=== PATIENT | female | born 1950 | race Two or more races ===

== ENCOUNTER 2017-01-27 04:27 | Inpatient (IN) | payer BC ==
[~2017-01-27] VITALS: Ht 160 cm; Wt 90.7 kg
[2017-01-27] VITALS (7 sets, daily range): BP systolic 119–148; BP diastolic 59–71
--- NOTE | 2017-01-27 04:50 | Emergency Room Report ---
History of Present Illness General Chief Complaint: Altered Level of Consciousness Source: Patient, Family Member Present Illness HPI Is a 66-year-old female with history of thyroid problem. She is been in the hospital visiting her daughter who was omitted for surgery. She stood up and became lightheaded and diaphoretic. She sat down and had a syncopal episode. This lasted for a few seconds. Per his felt weak and tired. No chest pain. No nausea no vomiting. No chest pain. No headache. A family friend who is a nurse came down from the floor. She said that patient had 2 syncopal or so so in the last week. Is a happen to her before. This occur when she was at the [facility] also. She went to the ER there he was discharged. Patient never had any followup with a neurologist or bowling ball patcher. Patient is not on any antihypertensive for her diabetic medication. Allergies: Coded Allergies: No Known Allergies (Unverified , 01/27/17) Patient History Past Medical History: see triage record, old chart reviewed Past Surgical History: other Pertinent Family History: none Social History: Denies: smoking Last Menstrual Period: n/a Now: No Immunizations: other Reviewed Nursing Documentation: PMH: Agreed, PSxH: Agreed Nursing Documentation-PMH Past Medical History: No History, Except For Review of Systems Eye: Denies: blurred vision, eye pain ENT: Denies: ear pain, nose congestion, throat swelling Respiratory: Denies: cough, shortness of breath Cardiovascular: Denies: chest pain, palpitations Gastrointestinal: Denies: abdominal pain, diarrhea, nausea, vomiting Musculoskeletal: Denies: back pain, joint pain Skin: Denies: rash Neurological: Denies: headache, numbness Endocrine: Denies: increased thirst, increased urine Hematologic/Lymphatic: Denies: easy bruising All Other Systems: negative except mentioned in HPI Physical Exam Vital Signs Date Time Temp Pulse Resp B/P Pulse Ox O2 Delivery O2 Flow Rate FiO2 01/27/17 04:29 97.7 63 23 82/48 94 Room Air vitals with hypotension Sp02 EP Interpretation: reviewed, normal General Appearance: well appearing, no apparent distress, alert Head: normocephalic, atraumatic Eyes: bilateral eye EOMI, bilateral eye PERRL ENT: hearing grossly normal, normal pharynx Neck: full range of motion, supple, no meningismus Respiratory: chest non-tender, lungs clear, normal breath sounds Cardiovascular #1: regular rate, rhythm, no murmur Gastrointestinal: normal bowel sounds, non tender, no mass, no organomegaly, no bruit, non-distended Musculoskeletal: back normal, gait/station normal, normal range of motion Psychiatric: mood/affect normal Skin: warm/dry Medical Decision Making Diagnostic Impression: Primary Impression: Syncope and collapse ER Course Patient presents with syncope. Probably vasovagal. Blood pressure was low when she got here. Back to normal now. patient felt better. No evidence of ACS , PE, dissection. Labs unremarkable. according to her family friend, is not the first time this happened to her. In fact, this has been several times. Because of this, she warrant admission. This may be a sick sinus syndrome. This may be a heart block. This may be other arrhythmia. I doubt this is TIA or CVA. Lab Results Impression labs unremarkable EKG Diagnostic Results Rate: normal Rhythm: NSR ST Segments: no acute changes Rhythm Strip Diag. Results EP Interpretation: yes Rate: 62 Rhythm: NSR, no PVC's, no ectopy Chest X-Ray Diagnostic Results EP Interpretation: Yes Findings: no consolidation, no effusion, no pneumothorax, no acute cardiopulmonary disease Number of Views: 1 Last Vital Signs Date Time Temp Pulse Resp B/P Pulse Ox O2 Delivery O2 Flow Rate FiO2 01/27/17 04:40 97.7 89 23 133/68 94 Room Air Status: improved Disposition: ADMITTED INPATIENT Condition: Serious LANI ROBBINS M.D. January 27, 2017 04:50
[2017-01-27 05:09] LABS: APPEARANCE,URINE CLEAR; KETONES,URINE NEGATIVE (NEGATIVE); LEUKOCYTE ESTERASE ,URINE 3+ (NEGATIVE); NITRITE,URINE NEGATIVE (NEGATIVE); PH,URINE 5 (4.5-8.0); PROTEIN,URINE NEGATIVE (NEGATIVE); UROBILINOGEN,URINE NORMAL MG/DL (0.0-1.0)
[2017-01-27 05:11] LABS: MEAN CORPUSCULAR HEMOGLOBIN 32.2 PG (27.0-31.0); MEAN CORPUSCULAR VOLUME 92 FL (80-99); PLATELET COUNT 265 K/UL (150-450); RED BLOOD COUNT 4.38 M/UL (4.20-5.40); RED CELL DISTRIBUTION WIDTH 10.8 % (11.6-14.8); WHITE BLOOD COUNT 12.5 K/UL (4.8-10.8)
[2017-01-27 05:27] LABS: ALANINE AMINOTRANSFERASE 18 U/L (3-33); ALBUMIN/GLOBULIN RATIO 1.3 (1.0-2.7); ANION GAP 15 (5-15); ASPARTATE AMINO TRANSFERASE 18 U/L (5-40); CALCIUM 10.4 mg/dL (8.6-10.2); CARBON DIOXIDE 26 mEQ/L (20-30); CHLORIDE 100 mEQ/L (98-107); CREATININE 0.8 mg/dL (0.5-0.9); GLOMERULAR FILTRATION RATE > 60 mL/min (>60); HEMOLYSIS 18; POTASSIUM 4.1 mEQ/L (3.4-4.9); SODIUM 141 mEQ/L (135-145); TOTAL PROTEIN 7.3 g/dL (6.6-8.7); TROPONIN I < 0.30 ng/mL (<=0.30)
[2017-01-27] MEDS ORDERED: ALEVE220 M2 PO (05:32)
[2017-01-27] MEDS ORDERED: VITAMIN D1000 UNI1 ORAL (05:32)
[2017-01-27 05:36] LABS: BACTERIA,URINE OCCASIONAL /HPF; RBC,URINE 0-2 /HPF (0 - 2); SQUAMOUS EPITHELIAL CELL,UR OCCASIONAL /LPF (NONE/OCC)
[2017-01-27 05:37] LABS: CKMB 1.7 ng/mL (< 3.8)
[2017-01-27 05:48] LABS: ANISOCYTOSIS 1+; BAND NEUTROPHILS % (MANUAL) 0 % (0-8); BASOPHILS % (MANUAL) 0 % (0-2); EOSINOPHILS % (MANUAL) 2 % (0-3); LYMPHOCYTES % (MANUAL) 64 % (20-45); NEUTROPHILS % (MANUAL) 30 % (45-75); PLATELET ESTIMATE ADEQUATE; PLATELET MORPHOLOGY NORMAL; TOTAL CELLS COUNTED 100
[2017-01-27 09:08] LABS: REACTIVE LYMPHOCYTES 1+
--- NOTE | 2017-01-27 10:36 | Diagnostic Imaging Report ---
Indication: Chest pain Technique: One view of the chest Comparison: none Findings: The lungs and pleural spaces are clear. The heart size is borderline enlarged. Impression: Cardiomegaly. No acute process
[2017-01-27 11:25] LABS: OTHERS PATHOLOGIST COMMENT
--- NOTE | 2017-01-27 13:38 | Infectious Diseases Prog Note ---
Assessment/Plan Problems: (1) UTI (urinary tract infection) Assessment & Plan: will send urine culture and start levaquin empirically (2) Syncope and collapse Assessment & Plan: recommend cardiology and neurology consult for further evaluation Subjective Allergies: Coded Allergies: No Known Allergies (Unverified , 01/27/17) Objective Vital Signs Last 24 Hour Vital Signs Date Time Temp Pulse Resp B/P Pulse Ox O2 Delivery O2 Flow Rate FiO2 01/27/17 12:00 90 01/27/17 11:29 97.0 63 18 143/71 100 Room Air 01/27/17 08:09 97.7 64 18 119/59 100 Room Air 01/27/17 08:00 73 01/27/17 06:49 74 148/70 99 Room Air 01/27/17 06:30 97.7 63 23 123/62 98 Room Air 01/27/17 06:20 97.7 63 23 123/62 98 Room Air 01/27/17 04:40 97.7 89 23 133/68 94 Room Air 01/27/17 04:29 97.7 63 23 82/48 94 Room Air Height (Feet): 5 Height (Inches): 3.00 Weight (Pounds): 200 Laboratory Tests Test 01/27/17 04:35 01/27/17 04:53 White Blood Count 12.5 K/UL (4.8-10.8) H Red Blood Count 4.38 M/UL (4.20-5.40) Hemoglobin 14.1 G/DL (12.0-16.0) Hematocrit 40.2 % (37.0-47.0) Mean Corpuscular Volume 92 FL (80-99) Mean Corpuscular Hemoglobin 32.2 PG (27.0-31.0) H Mean Corpuscular Hemoglobin Concent 35.0 G/DL (32.0-36.0) Red Cell Distribution Width 10.8 % (11.6-14.8) L Platelet Count 265 K/UL (150-450) Mean Platelet Volume 8.0 FL (6.5-10.1) Neutrophils (%) (Auto) % (45.0-75.0) Lymphocytes (%) (Auto) % (20.0-45.0) Monocytes (%) (Auto) % (1.0-10.0) Eosinophils (%) (Auto) % (0.0-3.0) Basophils (%) (Auto) % (0.0-2.0) Differential Total Cells Counted 100 Neutrophils % (Manual) 30 % (45-75) L Lymphocytes % (Manual) 64 % (20-45) H Monocytes % (Manual) 4 % (1-10) Eosinophils % (Manual) 2 % (0-3) Basophils % (Manual) 0 % (0-2) Band Neutrophils 0 % (0-8) Reactive Lymphocytes 1+ Other Cell Type Pathologist comment Platelet Estimate Adequate Platelet Morphology Normal Anisocytosis 1+ Sodium Level 141 mEQ/L (135-145) Potassium Level 4.1 mEQ/L (3.4-4.9) Chloride Level 100 mEQ/L (98-107) Carbon Dioxide Level 26 mEQ/L (20-30) Anion Gap 15 (5-15) Blood Urea Nitrogen 19 mg/dL (7-23) Creatinine 0.8 mg/dL (0.5-0.9) Estimat Glomerular Filtration Rate > 60 mL/min (>60) Glucose Level 151 mg/dL (74-106) H Calcium Level 10.4 mg/dL (8.6-10.2) H Total Bilirubin 0.5 mg/dL (0.0-1.2) Aspartate Amino Transf (AST/SGOT) 18 U/L (5-40) Alanine Aminotransferase (ALT/SGPT) 18 U/L (3-33) Alkaline Phosphatase 41 U/L (35-104) Total Creatine Kinase 59 U/L (26-140) Creatine Kinase MB 1.7 ng/mL (< 3.8) Creatine Kinase MB Relative Index 2.8 Troponin I < 0.30 ng/mL (<=0.30) Total Protein 7.3 g/dL (6.6-8.7) Albumin 4.2 g/dL (3.5-5.2) Globulin 3.1 g/dL Albumin/Globulin Ratio 1.3 (1.0-2.7) Urine Color Pale yellow Urine Appearance Clear Urine pH 5 (4.5-8.0) Urine Specific [place] 1.015 (1.005-1.035) Urine Protein Negative (NEGATIVE) Urine Glucose (UA) Negative (NEGATIVE) Urine Ketones Negative (NEGATIVE) Urine Occult Blood Negative (NEGATIVE) Urine Nitrite Negative (NEGATIVE) Urine Bilirubin Negative (NEGATIVE) Urine Urobilinogen Normal MG/DL (0.0-1.0) Urine Leukocyte Esterase 3+ (NEGATIVE) H Urine RBC 0-2 /HPF (0 - 2) Urine WBC 5-10 /HPF (0 - 2) H Urine Squamous Epithelial Cells Occasional /LPF Urine Bacteria Occasional /HPF (NONE) Current Medications Medications (Trade) Dose Ordered Sig/Dilan Route PRN Reason Start Time Stop Time Status Last Admin Dose Admin Dextrose (Dextrose 50%) STAT PRN IV Hypoglycemia 01/27/17 10:15 02/26/17 10:14 Dayo Henry M.D. January 27, 2017 13:38
--- NOTE | 2017-01-27 16:39 | Cardiology Report ---
APPROVED REPORT EKG Measurement Heart [id number] Normal sinus rhythm Normal ECG
--- NOTE | 2017-01-27 17:06 | Cardiac Electrophysiology PN ---
Subjective Subjective [id number] Objective Last 24 Hour Vital Signs Date Time Temp Pulse Resp B/P Pulse Ox O2 Delivery O2 Flow Rate FiO2 01/27/17 16:00 67 01/27/17 15:25 97.9 74 18 148/66 99 Room Air 01/27/17 12:00 90 01/27/17 11:29 97.0 63 18 143/71 100 Room Air 01/27/17 08:09 97.7 64 18 119/59 100 Room Air 01/27/17 08:00 73 01/27/17 06:49 74 148/70 99 Room Air 01/27/17 06:30 97.7 63 23 123/62 98 Room Air 01/27/17 06:20 97.7 63 23 123/62 98 Room Air 01/27/17 04:40 97.7 89 23 133/68 94 Room Air 01/27/17 04:29 97.7 63 23 82/48 94 Room Air Intake and Output 01/26/17 01/27/17 19:00 07:00 Intake Total 1000 ml Balance 1000 ml IV Total 1000 ml # Voids 1 Laboratory Tests Test 01/27/17 04:35 01/27/17 04:53 White Blood Count 12.5 K/UL (4.8-10.8) H Red Blood Count 4.38 M/UL (4.20-5.40) Hemoglobin 14.1 G/DL (12.0-16.0) Hematocrit 40.2 % (37.0-47.0) Mean Corpuscular Volume 92 FL (80-99) Mean Corpuscular Hemoglobin 32.2 PG (27.0-31.0) H Mean Corpuscular Hemoglobin Concent 35.0 G/DL (32.0-36.0) Red Cell Distribution Width 10.8 % (11.6-14.8) L Platelet Count 265 K/UL (150-450) Mean Platelet Volume 8.0 FL (6.5-10.1) Neutrophils (%) (Auto) % (45.0-75.0) Lymphocytes (%) (Auto) % (20.0-45.0) Monocytes (%) (Auto) % (1.0-10.0) Eosinophils (%) (Auto) % (0.0-3.0) Basophils (%) (Auto) % (0.0-2.0) Differential Total Cells Counted 100 Neutrophils % (Manual) 30 % (45-75) L Lymphocytes % (Manual) 64 % (20-45) H Monocytes % (Manual) 4 % (1-10) Eosinophils % (Manual) 2 % (0-3) Basophils % (Manual) 0 % (0-2) Band Neutrophils 0 % (0-8) Reactive Lymphocytes 1+ Other Cell Type Pathologist comment Platelet Estimate Adequate Platelet Morphology Normal Anisocytosis 1+ Sodium Level 141 mEQ/L (135-145) Potassium Level 4.1 mEQ/L (3.4-4.9) Chloride Level 100 mEQ/L (98-107) Carbon Dioxide Level 26 mEQ/L (20-30) Anion Gap 15 (5-15) Blood Urea Nitrogen 19 mg/dL (7-23) Creatinine 0.8 mg/dL (0.5-0.9) Estimat Glomerular Filtration Rate > 60 mL/min (>60) Glucose Level 151 mg/dL (74-106) H Calcium Level 10.4 mg/dL (8.6-10.2) H Total Bilirubin 0.5 mg/dL (0.0-1.2) Aspartate Amino Transf (AST/SGOT) 18 U/L (5-40) Alanine Aminotransferase (ALT/SGPT) 18 U/L (3-33) Alkaline Phosphatase 41 U/L (35-104) Total Creatine Kinase 59 U/L (26-140) Creatine Kinase MB 1.7 ng/mL (< 3.8) Creatine Kinase MB Relative Index 2.8 Troponin I < 0.30 ng/mL (<=0.30) Total Protein 7.3 g/dL (6.6-8.7) Albumin 4.2 g/dL (3.5-5.2) Globulin 3.1 g/dL Albumin/Globulin Ratio 1.3 (1.0-2.7) Urine Color Pale yellow Urine Appearance Clear Urine pH 5 (4.5-8.0) Urine Specific [place] 1.015 (1.005-1.035) Urine Protein Negative (NEGATIVE) Urine Glucose (UA) Negative (NEGATIVE) Urine Ketones Negative (NEGATIVE) Urine Occult Blood Negative (NEGATIVE) Urine Nitrite Negative (NEGATIVE) Urine Bilirubin Negative (NEGATIVE) Urine Urobilinogen Normal MG/DL (0.0-1.0) Urine Leukocyte Esterase 3+ (NEGATIVE) H Urine RBC 0-2 /HPF (0 - 2) Urine WBC 5-10 /HPF (0 - 2) H Urine Squamous Epithelial Cells Occasional /LPF Urine Bacteria Occasional /HPF (NONE) KIRIT LEONG January 27, 2017 17:06
--- NOTE | 2017-01-27 17:27 | Neurology Progress Note ---
Objective Physical Exam Last Vital Signs Date Time Temp Pulse Resp B/P Pulse Ox O2 Delivery O2 Flow Rate FiO2 01/27/17 16:00 67 01/27/17 15:25 97.9 18 148/66 99 Room Air Laboratory Tests Test 01/27/17 04:35 01/27/17 04:53 White Blood Count 12.5 K/UL (4.8-10.8) H Red Blood Count 4.38 M/UL (4.20-5.40) Hemoglobin 14.1 G/DL (12.0-16.0) Hematocrit 40.2 % (37.0-47.0) Mean Corpuscular Volume 92 FL (80-99) Mean Corpuscular Hemoglobin 32.2 PG (27.0-31.0) H Mean Corpuscular Hemoglobin Concent 35.0 G/DL (32.0-36.0) Red Cell Distribution Width 10.8 % (11.6-14.8) L Platelet Count 265 K/UL (150-450) Mean Platelet Volume 8.0 FL (6.5-10.1) Neutrophils (%) (Auto) % (45.0-75.0) Lymphocytes (%) (Auto) % (20.0-45.0) Monocytes (%) (Auto) % (1.0-10.0) Eosinophils (%) (Auto) % (0.0-3.0) Basophils (%) (Auto) % (0.0-2.0) Differential Total Cells Counted 100 Neutrophils % (Manual) 30 % (45-75) L Lymphocytes % (Manual) 64 % (20-45) H Monocytes % (Manual) 4 % (1-10) Eosinophils % (Manual) 2 % (0-3) Basophils % (Manual) 0 % (0-2) Band Neutrophils 0 % (0-8) Reactive Lymphocytes 1+ Other Cell Type Pathologist comment Platelet Estimate Adequate Platelet Morphology Normal Anisocytosis 1+ Sodium Level 141 mEQ/L (135-145) Potassium Level 4.1 mEQ/L (3.4-4.9) Chloride Level 100 mEQ/L (98-107) Carbon Dioxide Level 26 mEQ/L (20-30) Anion Gap 15 (5-15) Blood Urea Nitrogen 19 mg/dL (7-23) Creatinine 0.8 mg/dL (0.5-0.9) Estimat Glomerular Filtration Rate > 60 mL/min (>60) Glucose Level 151 mg/dL (74-106) H Calcium Level 10.4 mg/dL (8.6-10.2) H Total Bilirubin 0.5 mg/dL (0.0-1.2) Aspartate Amino Transf (AST/SGOT) 18 U/L (5-40) Alanine Aminotransferase (ALT/SGPT) 18 U/L (3-33) Alkaline Phosphatase 41 U/L (35-104) Total Creatine Kinase 59 U/L (26-140) Creatine Kinase MB 1.7 ng/mL (< 3.8) Creatine Kinase MB Relative Index 2.8 Troponin I < 0.30 ng/mL (<=0.30) Total Protein 7.3 g/dL (6.6-8.7) Albumin 4.2 g/dL (3.5-5.2) Globulin 3.1 g/dL Albumin/Globulin Ratio 1.3 (1.0-2.7) Urine Color Pale yellow Urine Appearance Clear Urine pH 5 (4.5-8.0) Urine Specific [place] 1.015 (1.005-1.035) Urine Protein Negative (NEGATIVE) Urine Glucose (UA) Negative (NEGATIVE) Urine Ketones Negative (NEGATIVE) Urine Occult Blood Negative (NEGATIVE) Urine Nitrite Negative (NEGATIVE) Urine Bilirubin Negative (NEGATIVE) Urine Urobilinogen Normal MG/DL (0.0-1.0) Urine Leukocyte Esterase 3+ (NEGATIVE) H Urine RBC 0-2 /HPF (0 - 2) Urine WBC 5-10 /HPF (0 - 2) H Urine Squamous Epithelial Cells Occasional /LPF Urine Bacteria Occasional /HPF (NONE) Impression/Recommendations Problems: (1) Syncope and collapse Recommendations #[id number] CHELY RUIZ January 27, 2017 17:27
[2017-01-27 18:42] LABS: THYROID STIMULATING HORMONE 1.36 uIU/mL (0.300-4.500)
--- NOTE | 2017-01-27 21:45 | Consultation ---
DATE OF CONSULTATION: INFECTIOUS DISEASE CONSULTATION REQUESTING PHYSICIAN: Van Aviles D.O. REASON FOR CONSULTATION: Urinary tract infection, recommendation for antibiotics treatment. HISTORY OF PRESENT ILLNESS: The patient is a 66-year-old female with no significant past medical history, who has been visiting her daughter, who had surgery here at [facility]. She felt dizzy, lightheaded and became diaphoretic, almost passed out. So, she had to sit down. The patient did not loose consciousness completely, symptoms lasted for seconds. So, she was admitted to the hospital for further evaluation and management. She denied any chest pain or shortness of breath, but felt weak. No headache. No nausea or vomiting. No fever or chills. The patient had a workup including urinalysis, which showed evidence of urinary tract infection. So, I was consulted by the primary provider for antibiotics treatment. PAST MEDICAL HISTORY: Significant for thyroid disease. PAST SURGICAL HISTORY: Negative. MEDICATIONS: The patient received dextrose and sodium chloride in the emergency room. ALLERGIES: She has no known drug allergy. SOCIAL HISTORY: She is housewife. Denied using any drugs, tobacco or alcohol. FAMILY HISTORY: Not contributory. PHYSICAL EXAMINATION: GENERAL: Middle-aged female, lying in bed, awake, alert and oriented x3, not in distress. VITAL SIGNS: Temperature 97 degrees, pulse 63, respirations 18, blood pressure 143/71, and saturation 100% on room air. HEENT: Normocephalic and atraumatic. Pupils reactive to light. Normal oral mucosa. No exudate. NECK: Supple. No lymphadenopathy. CARDIOVASCULAR: Regular rate and rhythm. No murmur. LUNGS: Clear bilaterally. No wheezing or rhonchi. ABDOMEN: Soft, nontender, and nondistended. Positive bowel sounds. EXTREMITIES: No edema or cyanosis. LABORATORY AND DIAGNOSTIC DATA: Laboratories showed white count of 12.5, hemoglobin of 14.1, and platelet count of 265,000. BUN of 19 and creatinine of 0.8. Urinalysis showed +3 leukocyte esterase, 5-10 WBC and occasional bacteria. Imaging, chest x-ray showed cardiomegaly with no acute process. ASSESSMENT AND RECOMMENDATION: 1. Urinary tract infection. We will start the patient on levofloxacin, empiric treatment. We will send urine for culture. 2. Syncope, rule out vasovagal. Recommend Cardiology and Neurology consultation. Continue director dance and monitor blood pressure. Dayo Henry M.D. DR: ROBERTA JOB#: [id number] CC:
--- NOTE | 2017-01-27 22:45 | History and Physical Report ---
DATE OF ADMISSION: 01/27/2017 HISTORY OF PRESENT ILLNESS: The patient is here for syncope. The patient is actually visiting her daughter who is inpatient in the hospital when this happened early this morning. The patient had a syncopal episode detail. The patient has been having a couple of episodes of presyncope for the past couple of weeks; however, the actual syncope happened early this morning. Denies shortness of breath. Denies headache. Denies nausea, vomiting, or diarrhea. Denies fever or chills. The patient is being admitted for recurrent syncope. Denies headache. Denies shortness of breath. Denies diplopia. PAST MEDICAL HISTORY: Degenerative joint disease. PAST SURGICAL HISTORY: None. ALLERGIES: None. MEDICATIONS: The patient takes only p.r.n. Aleve. SOCIAL HISTORY: The patient denies smoking, alcohol, or illicit drugs. REVIEW OF SYSTEMS: HEENT: Denies headaches. Respiratory: Denies shortness of breath. Denies cough. Cardiovascular: Denies chest pain. GI: Denies nausea, vomiting, or diarrhea. Extremities: Denies pain in the lower extremities . STUDIO GRIP: Denies change in vision or speech pattern, does have mild neck pain. Denies chest pain. Reported couple of presyncope as well as one syncopal episode. Denies headache. Denies shortness of breath. Denies or diplopia. PHYSICAL EXAMINATION: VITAL SIGNS: Temperature 97.7, pulse 89, and blood pressure 133/68. HEENT: PERRLA. NECK: Supple. No lymphadenopathy. CHEST: Clear to auscultation. GI: Soft, nontender, and nondistended. No organomegaly. EXTREMITIES: No edema. Moves all four extremities. NEUROLOGIC: Sensory is intact to light touch. Reflexes are equal on both sides. Oriented x3. Cranial nerves II through XII intact. LABORATORY DATA: White blood cell count 12.5, hemoglobin 14.1, and platelets 265,000. Sodium 141, potassium 4.1, glucose of 151, and calcium 10.4. The patient may also have a UTI. ASSESSMENT AND PLAN: 1. Syncopal episode. 2. Possible urinary tract infection. 3. dehydration. 4. The patient also has thyroid problem. 5. I have asked Dr. Chávez, Dr. Calderon, Dr. Goff, Dr. Rasmussen, and Dr. Henry to see the patient for the above-mentioned diagnoses and treatment. Zehra Keane M.D. DR: BRITT JOB#: [id number] CC:
[2017-01-28] VITALS: BP 128/57
--- NOTE | 2017-01-28 00:30 | Consultation ---
DATE OF CONSULTATION: 01/27/2017 NEUROLOGICAL CONSULTATION CONSULTING PHYSICIAN: Juan Alberto Chávez M.D. REQUESTING PHYSICIAN: Zehra Keane M.D. HISTORY OF PRESENT ILLNESS: This is a 66 years old lady, seen in neurological consultation to evaluate the transient loss of consciousness. The patient informed me that last two weeks she is in the hospital for her daughter who had some critical surgeries. She stays with her 24 hours a day, feels exhausted and tired. Yesterday, she was in her room and when nurses came in to draw the blood, she got up and tried to walk. At that point, she become very pale and diaphoretic. Her daughter noticed what was wrong with you. The patient lost consciousness and fell back to her chair. The patient was immediately brought to the emergency room where she was awake, but feeling weak and tired. The patient now recalled that day, she was not drinking fluids enough. Upon arrival to the emergency room, her blood pressure was 82/48, respirations 23, and temperature 97.7. Laboratory studies included CBC with WBC 12.5. Chemistry panel unremarkable except blood sugar of 151, calcium 10.4, and urinalysis 5-10 WBCs. Imaging studies included chest x-ray revealed cardiomegaly, but no evidence of any acute abnormalities. EKG, normal sinus rhythm. Since admission till present, the patient stabilized and she is not feeling fairly well and asking to be discharged. The patient has a history of remote syncope, which occurred two years ago when she was in the [facility] caring for her daughter. She had episodes for a brief loss of consciousness, was hospitalized, and she had extensive cardiac and neurological workup, which was negative. The patient claims that she likes to be doing significant amount of water, but at this time, she was quite dehydrated. PAST MEDICAL HISTORY: The patient has no history of medical issues. She is using Aleve for arthritis. Denies hypertension, diabetes, or cardiac issues. She is maintained on vitamin D supplements. She was diagnosed with hypothyroidism. SOCIAL HISTORY: The patient is out of town. She is in the hospital with her daughter who underwent surgeries. No alcohol. No drug abuse. Nonsmoker. FAMILY HISTORY: Noncontributory. REVIEW OF SYMPTOMS: At this time, the patient is feeling well. No headache. No dizziness. No chest pain. No palpitations. No respiratory problems. Denies abdominal pain or discomfort. No urine or bowel incontinence. PHYSICAL EXAMINATION: GENERAL: This is a well-developed and well-nourished pleasant lady, not in acute distress, lying comfortably in bed. Her family member at the bedside. VITAL SIGNS: Vital signs now stable. Blood pressure 148/66 and temperature 97.9. HEENT: Head, normocephalic. No evidence of trauma. Eyes, ears, and throat are clear. NECK: Supple. No meningeal signs. MUSCULOSKELETAL: Unremarkable. There are no deformities. Peripheral pulses 1+ and symmetric. MENTAL STATUS: Alert and oriented x3 with no evidence of aphasia or apraxia. Cognitive function normal. CRANIAL NERVE II: Pupils both responding to light and accommodation. Extraocular movements intact. No nystagmus. CRANIAL NERVE V: Normal corneal responses. CRANIAL NERVE VII: No facial asymmetry. CRANIAL NERVE VIII: Normal hearing. CRANIAL NERVE IX THROUGH XII: Tongue is in midline. Symmetric palate elevation. MOTOR EXAMINATION: Normal muscle tone. Strength is 5/5 in all extremities. No involuntary movement. Deep tendon reflexes 1+ and symmetric with downgoing toes on both sides. Sensory exam normal in all modalities. Gait is stable. IMPRESSION: 1. Recurrent syncope, vasovagal type. 2. History of hypothyroidism. 3. Degenerative joint disease. RECOMMENDATIONS: The patient recommended to maintain proper hydration. Avoid abrupt changing in body position, standing up slowly. She is recommended to have daily conditioning exercises. Full cardiac assessment including orthostatic blood pressure measurements as per attending. Thank you for allowing me to see this interesting patient in neurological consultation. Juan Alberto Chávez M.D. DR: DAYAN JOB#: [id number] CC:
--- NOTE | 2017-01-28 01:00 | Consultation ---
DATE OF CONSULTATION: 01/27/2017 ELECTROPHYSIOLOGY CONSULTATION CONSULTING PHYSICIAN: Cristian Calderon M.D. REFERRING PHYSICIAN: Zehra Keane M.D. REASON FOR CONSULTATION: Syncope HISTORY OF PRESENT ILLNESS: The patient is a 66-year-old lady with history of syncope three years ago when she was visiting her daughter in [facility], for which she had a workup, which was negative at that time. The patient has been being visiting her daughter in the hospital who was admitted for surgery and when she stood up, she suddenly got lightheaded and diaphoretic. She then had a syncopal episode that lasted a few seconds. The patient was sent to the emergency room. The patient was evaluated and was admitted to telemetry floor. The patient denies any nausea, vomiting, chest pain, shortness of breath, or any problem. By report, the patient had syncopal episodes in the last week as well. At that time, she went to the hospital and she was discharged. She never saw a director of maintenance or neurologist during these episodes. The patient denies any prior cardiac history or even hypertension or diabetes. REVIEW OF SYSTEMS: Review of systems was thoroughly performed and was negative other than what is mentioned in the history of present illness. PAST MEDICAL HISTORY: Negative except for syncope in the past. SOCIAL HISTORY: She lives at home. Does not smoke or drink alcohol. PHYSICAL EXAMINATION: VITAL SIGNS: Her blood pressure in the ER was 82/48, pulse of 62, respirations 20. NECK: No JVD or carotid bruits. LUNGS: Clear. CARDIOVASCULAR: Regular S1 and S2 with no gallop or murmur. ABDOMEN: Soft. EXTREMITIES: No pitting edema. LABORATORY AND DIAGNOSTIC DATA: Her EKG showed normal sinus rhythm, normal electrocardiogram. Labs showed , hemoglobin 14, hematocrit 40, and platelet count 265,000. Sodium 141, potassium 4.1, BUN of 19, creatinine 0.8, and glucose 151. Troponin is negative. Her urinalysis showed 15 to 20 WBC and 3+ leukocyte esterase. ASSESSMENT AND PLAN: 1. Syncope due to hypotension likely due to vasovagal episodes. The patient also had arrhythmia on telemetry. EKG is normal. We will get an echocardiogram and carotid Doppler. I will check her orthostatics vital signs for further evaluation. 2. Urinary tract infection. The patient was on Levaquin empirically by Dr. Henry. Thank very much, Dr. Keane, for allowing me to participate in care of this patient. Please do not hesitate to contact me for any questions regarding my evaluation. Cristian Calderon M.D. DR: VASILE JOB#: [id number] CC:
[2017-01-28 04:00] VITALS: BP 119/73
[2017-01-28 08:00] VITALS: BP 129/46
[2017-01-28 08:05] LABS: EOSINOPHILS % (AUTO) 3.1 % (0.0-3.0); LYMPHOCYTES % (AUTO) 49.2 % (20.0-45.0); MEAN CORPUSCULAR HEMOGLOBIN 31.7 PG (27.0-31.0); MEAN CORPUSCULAR HGB CONC 34.2 G/DL (32.0-36.0); MEAN CORPUSCULAR VOLUME 93 FL (80-99); MONOCYTES % (AUTO) 6.4 % (1.0-10.0); NEUTROPHILS % (AUTO) 40.3 % (45.0-75.0); PLATELET COUNT 275 K/UL (150-450); RED BLOOD COUNT 4.28 M/UL (4.20-5.40); RED CELL DISTRIBUTION WIDTH 10.9 % (11.6-14.8); WHITE BLOOD COUNT 7.9 K/UL (4.8-10.8)
[2017-01-28 08:34] LABS: TROPONIN I < 0.30 ng/mL (<=0.30)
[2017-01-28 08:36] LABS: ANION GAP 13 (5-15); CALCIUM 10.4 mg/dL (8.6-10.2); CARBON DIOXIDE 29 mEQ/L (20-30); CHLORIDE 98 mEQ/L (98-107); CREATININE 0.7 mg/dL (0.5-0.9); GLOMERULAR FILTRATION RATE > 60 mL/min (>60); HEMOLYSIS 0; POTASSIUM 4.5 mEQ/L (3.4-4.9); SODIUM 140 mEQ/L (135-145)
--- NOTE | 2017-01-28 10:51 | General Progress Note ---
Assessment/Plan Problem List: (1) Syncope and collapse ICD Codes: R55 - Syncope and collapse SNOMED: 254768829 (2) UTI (urinary tract infection) ICD Codes: N39.0 - Urinary tract infection, site not specified SNOMED: 98723377 Status: progressing Assessment/Plan afebrile no arrythmia uti abx per id no fever no wheezing Subjective ROS Limited/Unobtainable: Yes Allergies: Coded Allergies: No Known Allergies (Unverified , 01/27/17) Objective Last 24 Hour Vital Signs Date Time Temp Pulse Resp B/P Pulse Ox O2 Delivery O2 Flow Rate FiO2 01/28/17 08:00 76 83 91 01/28/17 08:00 98.1 83 18 129/46 96 Room Air 01/28/17 08:00 84 01/28/17 04:34 89 100 105 01/28/17 04:00 97.8 86 20 119/73 97 Room Air 01/28/17 04:00 65 01/28/17 00:00 92 01/28/17 00:00 97.8 77 19 128/57 94 Room Air 01/27/17 20:00 98 01/27/17 20:00 97.9 92 20 132/60 98 Room Air 01/27/17 18:31 93 01/27/17 18:25 87 01/27/17 18:20 87 01/27/17 16:00 67 01/27/17 15:25 97.9 74 18 148/66 99 Room Air 01/27/17 12:00 90 01/27/17 11:29 97.0 63 18 143/71 100 Room Air Intake and Output 01/27/17 01/28/17 19:00 07:00 Intake Total 240 ml 400 ml Balance 240 ml 400 ml Intake Oral 240 ml 400 ml # Voids 2 2 # Bowel Movements 1 1 Laboratory Tests 01/28/17 07:05: White Blood Count 7.9, Red Blood Count 4.28, Hemoglobin 13.6, Hematocrit 39.7, Mean Corpuscular Volume 93, Mean Corpuscular Hemoglobin 31.7H, Mean Corpuscular Hemoglobin Concent 34.2, Red Cell Distribution Width 10.9L, Platelet Count 275, Mean Platelet Volume 8.0, Neutrophils (%) (Auto) 40.3L, Lymphocytes (%) (Auto) 49.2H, Monocytes (%) (Auto) 6.4, Eosinophils (%) (Auto) 3.1H, Basophils (%) ( Auto) 1.0, Sodium Level 140, Potassium Level 4.5, Chloride Level 98, Carbon Dioxide Level 29, Anion Gap 13, Blood Urea Nitrogen 18, Creatinine 0.7, Estimat Glomerular Filtration Rate > 60, Glucose Level 119H, Calcium Level 10.4H, Troponin I < 0.30, Pro-B-Type Natriuretic Peptide 34, Thyroid Stimulating Hormone (TSH) [Pending], Free Thyroxine 1.27 Height (Feet): 5 Height (Inches): 3.00 Weight (Pounds): 200 Neck: supple Cardiovascular: normal rate Respiratory/Chest: lungs clear Abdomen: soft Zehra Keane MD Jan 28, 2017 10:51
[2017-01-28 12:00] VITALS: BP 153/70
[2017-01-28 14:10] LABS: THYROID STIMULATING HORMONE 0.556 uIU/mL (0.300-4.500)
--- NOTE | 2017-01-28 15:28 | Infectious Diseases Prog Note ---
Assessment/Plan Problems: (1) UTI (urinary tract infection) Assessment & Plan: urine culture showed no growth , may D/C levaquin empirically (2) Syncope and collapse Assessment & Plan: suspect vasovagal, further work up in process , recommend cardiology and neurology consult for further evaluation Subjective Constitutional: Reports: no symptoms HEENT: Reports: no symptoms Respiratory: Reports: no symptoms Breasts: Reports: no symptoms Cardiovascular: Reports: no symptoms Gastrointestinal/Abdominal: Reports: no symptoms Genitourinary: Reports: no symptoms Neurologic: Reports: no symptoms Psychiatric: Reports: no symptoms Skin: Reports: no symptoms Endocrine: Reports: no symptoms Allergies: Coded Allergies: No Known Allergies (Unverified , 01/27/17) Objective Vital Signs Last 24 Hour Vital Signs Date Time Temp Pulse Resp B/P Pulse Ox O2 Delivery O2 Flow Rate FiO2 01/28/17 12:00 98.0 79 18 153/70 96 Room Air 01/28/17 12:00 71 01/28/17 08:00 76 83 91 01/28/17 08:00 98.1 83 18 129/46 96 Room Air 01/28/17 08:00 84 01/28/17 04:34 89 100 105 01/28/17 04:00 97.8 86 20 119/73 97 Room Air 01/28/17 04:00 65 01/28/17 00:00 92 01/28/17 00:00 97.8 77 19 128/57 94 Room Air 01/27/17 20:00 98 01/27/17 20:00 97.9 92 20 132/60 98 Room Air 01/27/17 18:31 93 01/27/17 18:25 87 01/27/17 18:20 87 01/27/17 16:00 67 Height (Feet): 5 Height (Inches): 3.00 Weight (Pounds): 200 General Appearance: WD/WN, no acute distress HEENT: normocephalic, atraumatic, anicteric, mucous membranes moist Respiratory/Chest: chest wall non-tender, lungs clear, normal breath sounds, no respiratory distress, no accessory muscle use Cardiovascular: normal peripheral pulses, normal rate, regular rhythm, no gallop/murmur Abdomen: normal bowel sounds, soft, non tender, no organomegaly, non distended , no mass Extremities: no cyanosis, no clubbing Skin: no rash, no lesions Microbiology Date/Time Source Procedure Growth Status 01/27/17 19:45 Urine,Clean Catch Urine Culture - Preliminary NO GROWTH Resulted Laboratory Tests Test 01/28/17 07:05 White Blood Count 7.9 K/UL (4.8-10.8) Red Blood Count 4.28 M/UL (4.20-5.40) Hemoglobin 13.6 G/DL (12.0-16.0) Hematocrit 39.7 % (37.0-47.0) Mean Corpuscular Volume 93 FL (80-99) Mean Corpuscular Hemoglobin 31.7 PG (27.0-31.0) H Mean Corpuscular Hemoglobin Concent 34.2 G/DL (32.0-36.0) Red Cell Distribution Width 10.9 % (11.6-14.8) L Platelet Count 275 K/UL (150-450) Mean Platelet Volume 8.0 FL (6.5-10.1) Neutrophils (%) (Auto) 40.3 % (45.0-75.0) L Lymphocytes (%) (Auto) 49.2 % (20.0-45.0) H Monocytes (%) (Auto) 6.4 % (1.0-10.0) Eosinophils (%) (Auto) 3.1 % (0.0-3.0) H Basophils (%) (Auto) 1.0 % (0.0-2.0) Sodium Level 140 mEQ/L (135-145) Potassium Level 4.5 mEQ/L (3.4-4.9) Chloride Level 98 mEQ/L (98-107) Carbon Dioxide Level 29 mEQ/L (20-30) Anion Gap 13 (5-15) Blood Urea Nitrogen 18 mg/dL (7-23) Creatinine 0.7 mg/dL (0.5-0.9) Estimat Glomerular Filtration Rate > 60 mL/min (>60) Glucose Level 119 mg/dL (74-106) H Calcium Level 10.4 mg/dL (8.6-10.2) H Troponin I < 0.30 ng/mL (<=0.30) Pro-B-Type Natriuretic Peptide 34 pg/mL (0-125) Thyroid Stimulating Hormone (TSH) 0.556 uIU/mL (0.300-4.500) Free Thyroxine 1.27 ng/dL (0.86-1.85) Current Medications Medications (Trade) Dose Ordered Sig/Dilan Route PRN Reason Start Time Stop Time Status Last Admin Dose Admin Dextrose (Dextrose 50%) STAT PRN IV Hypoglycemia 01/27/17 10:15 02/26/17 10:14 Levofloxacin (Levaquin) 250 mg DAILY ORAL 01/27/17 14:00 01/31/17 13:59 01/28/17 08:28 Dayo Henry M.D. Jan 28, 2017 15:28
--- NOTE | 2017-01-28 15:32 | Cardiac Electrophysiology PN ---
Assessment/Plan Assessment/Plan 1. Syncope due to hypotension likely due to vasovagal episodes. No arrhythmia on telemetry. EKG is normal. Echocardiogram and carotid Doppler negative. 2. Urinary tract infection. The patient was on Levaquin empirically by Dr. Henry. OK to DC from cardiac standpoint. Subjective Subjective Feeling better. Wants to go home. No chest pain or SOB. Objective Last 24 Hour Vital Signs Date Time Temp Pulse Resp B/P Pulse Ox O2 Delivery O2 Flow Rate FiO2 01/28/17 12:00 98.0 79 18 153/70 96 Room Air 01/28/17 12:00 71 01/28/17 08:00 76 83 91 01/28/17 08:00 98.1 83 18 129/46 96 Room Air 01/28/17 08:00 84 01/28/17 04:34 89 100 105 01/28/17 04:00 97.8 86 20 119/73 97 Room Air 01/28/17 04:00 65 01/28/17 00:00 92 01/28/17 00:00 97.8 77 19 128/57 94 Room Air 01/27/17 20:00 98 01/27/17 20:00 97.9 92 20 132/60 98 Room Air 01/27/17 18:31 93 01/27/17 18:25 87 01/27/17 18:20 87 01/27/17 16:00 67 Intake and Output 01/27/17 01/28/17 19:00 07:00 Intake Total 240 ml 400 ml Balance 240 ml 400 ml Intake Oral 240 ml 400 ml # Voids 2 2 # Bowel Movements 1 1 Laboratory Tests Test 01/28/17 07:05 White Blood Count 7.9 K/UL (4.8-10.8) Red Blood Count 4.28 M/UL (4.20-5.40) Hemoglobin 13.6 G/DL (12.0-16.0) Hematocrit 39.7 % (37.0-47.0) Mean Corpuscular Volume 93 FL (80-99) Mean Corpuscular Hemoglobin 31.7 PG (27.0-31.0) H Mean Corpuscular Hemoglobin Concent 34.2 G/DL (32.0-36.0) Red Cell Distribution Width 10.9 % (11.6-14.8) L Platelet Count 275 K/UL (150-450) Mean Platelet Volume 8.0 FL (6.5-10.1) Neutrophils (%) (Auto) 40.3 % (45.0-75.0) L Lymphocytes (%) (Auto) 49.2 % (20.0-45.0) H Monocytes (%) (Auto) 6.4 % (1.0-10.0) Eosinophils (%) (Auto) 3.1 % (0.0-3.0) H Basophils (%) (Auto) 1.0 % (0.0-2.0) Sodium Level 140 mEQ/L (135-145) Potassium Level 4.5 mEQ/L (3.4-4.9) Chloride Level 98 mEQ/L (98-107) Carbon Dioxide Level 29 mEQ/L (20-30) Anion Gap 13 (5-15) Blood Urea Nitrogen 18 mg/dL (7-23) Creatinine 0.7 mg/dL (0.5-0.9) Estimat Glomerular Filtration Rate > 60 mL/min (>60) Glucose Level 119 mg/dL (74-106) H Calcium Level 10.4 mg/dL (8.6-10.2) H Troponin I < 0.30 ng/mL (<=0.30) Pro-B-Type Natriuretic Peptide 34 pg/mL (0-125) Thyroid Stimulating Hormone (TSH) 0.556 uIU/mL (0.300-4.500) Free Thyroxine 1.27 ng/dL (0.86-1.85) Microbiology Date/Time Source Procedure Growth Status 01/27/17 19:45 Urine,Clean Catch Urine Culture - Preliminary NO GROWTH Resulted Objective NECK: No JVD or carotid bruits. LUNGS: Clear. CARDIOVASCULAR: Regular S1 and S2 with no gallop or murmur. ABDOMEN: Soft. EXTREMITIES: No pitting edema. KIRIT LEONG Jan 28, 2017 15:32
[2017-01-28 16:00] VITALS: BP 138/69
--- NOTE | 2017-01-29 11:45 | Discharge Summary ---
Discharge Summary Hospital Course Date of Admission January 27, 2017 at 05:07 Date of Discharge Jan 28, 2017 at 17:40 Admitting Diagnosis SYNCOPE HPI Paula Pedraza is a 66 year old female who was admitted on January 27, 2017 at 05:07 for Syncope Hospital Course [id number] Discharge Discharge Disposition Patient was discharged to Home (01) Discharge Diagnoses: Maria Antonia Alvarado NP Jan 29, 2017 11:45
--- NOTE | 2017-01-29 15:38 | Diagnostic Imaging Report ---
APPROVED REPORT CPT Code: 55276 Vascular Symptoms Syncope CAROTID (BILATERAL) - Imaging reveals no significant plaque within the right and left extracranial carotid arteries. The Doppler spectral flow analysis is within normal limits throughout the extracranial carotid arteries bilaterally. VERTEBRAL- The vertebral arteries are within normal limits.
--- NOTE | 2017-01-29 15:39 | Diagnostic Imaging Report ---
APPROVED REPORT CPT Code: 95211 Present Symptoms Lower Extremity Pain: Bilateral Comments: weakness BILATERAL: Imaging reveals a patent deep venous system bilaterally. There is no evidence of thrombus within the femoral, popliteal or tibial segments. The greater saphenous veins are also within normal limits. Doppler indicates normal spontaneous flow within these segments.
--- NOTE | 2017-01-30 02:00 | Discharge Summary 2 SIG ---
DATE OF ADMISSION: 01/27/2017 DATE OF DISCHARGE: 01/28/2017 CONSULTANTS: 1. Cristian Calderon M.D. 2. Dayo Henry M.D. 3. Juan Alberto Chávez M.D. BRIEF HOSPITAL COURSE: The patient is a 66-year-old female, who was brought in for syncope. The patient is visiting her daughter who is an inpatient in the hospital and syncopal episode happened early in the morning. The patient had been having couple of episodes of presyncope for the past couple of weeks. On evaluation at ED, chest x-ray done showed no acute cardiopulmonary disease. EKG showed normal sinus rhythm. Initial evaluation at ED, showed hypotension. Blood pressure was down to 82/40, which eventually improved. Laboratories were unremarkable. According to a family friend, this is not the first time in fact has been happening for several times because of these she warrants admission. She then underwent a cardiac evaluation and was admitted to telemetry floor. Syncope could be due to hypotension likely due to a vasovagal episode. There were no arrhythmia noted on telemetry. EKG was normal. She was also seen by a neurologist. Neuro exam was unremarkable. The patient was recommended to maintain proper hydration and advised to avoid prompt abrupt change in body position and recommended to have daily conditioning exercises. She was given levofloxacin by Infectious Disease specialist. Urine culture showed no growth. Antibiotic was discontinued. The patient was eventually discharged home to follow up with PMD. FINAL DIAGNOSES: 1. Syncope possibly vasovagal. 2. Urinary tract infection. Zehra Keane M.D. I have been assigned to dictate discharge summary on this account and I was not involved in the patient's management. Maria Antonia Alvarado N.P. DR: JUAN DIEGO JOB#: [id number] CC:
== END 2017-01-28 17:40 | disposition home or self-care (01) | DRG 315 ==
LOC: EDBD 04:27 → EMR 04:59 → 2E 05:07 → EDBEDREQ 05:55
DX: I95.9 Hypotension, unspecified (principal); N39.0 Urinary tract infection, site not specified; R55 Syncope and collapse; E03.9 Hypothyroidism, unspecified
CPT/HCPCS: 36415; 71010; 80048; 80053; 81003; 82550; 82553; 83880; 84439; 84443; 84484; 85007; 85025; 87086; 93005; 93306; 93880; 93970